=== PATIENT | male | born 1980 | race Caucasian/White ===

== ENCOUNTER 2018-01-03 13:58 | Emergency (ER) | payer OTHER ==
[~2018-01-03] VITALS: Ht 175.3 cm; Wt 108.9 kg
[~2018-01-03 13:58] MED LIST: IBUPROFEN 800800 MG PO; NOHOMEMEDICATIONS; NORCO 5-325 TA1 EACH PO; PENICILLIN VK500 M1 PO; ROBAXIN500 MG PO
[2018-01-03] MEDS ORDERED: BACTRIM DS TAB1 EACH PO (14:14)
[2018-01-03] MEDS ORDERED: KEFLEX500 M1 PO (14:14)
[2018-01-03 14:36] VITALS: BP 151/91
== END 2018-01-03 14:45 | disposition home or self-care (01) ==
LOC: M.ERS 13:58
DX: L73.9 Follicular disorder, unspecified (principal); I10 Essential (primary) hypertension; Z20.818 Contact with and (suspected) exposure to other bacterial communicable diseases; Z90.49 Acquired absence of other specified parts of digestive tract; Z88.5 Allergy status to narcotic agent; Z88.6 Allergy status to analgesic agent

== ENCOUNTER 2021-09-28 16:27 | Emergency (ER) | payer OTHER ==
[~2021-09-28] VITALS: Ht 175.3 cm; Wt 113.0 kg
[~2021-09-28 16:27] MED LIST changes: +BACTRIM DS TAB1 EACH PO; +KEFLEX500 M1 PO
[2021-09-28] MEDS ORDERED: LISINOPRIL20 MG PO (16:44)
[2021-09-28] MEDS ORDERED: HCTZ PO (16:45)
[2021-09-28 18:21] LABS: HEMATOCRIT 44.5 % (42.0-52.0); HEMOGLOBIN 15.3 gm/dL (14.0-18.0); MCH 29.5 pg (26.0-34.0); MCHC 34.3 g/dL (28.0-37.0); MCV 85.9 fL (80.0-100.0); MPV 9.6 fl. (7.2-11.1); RBC 5.18 mil/uL (4.50-6.00); RDW-CV 13.3 % (10.5-14.5); WBC 10.7 thou/uL (4.0-11.0)
[2021-09-28 18:24] LABS: CALCIUM 8.9 mg/dL (8.5-10.1); POTASSIUM 4.1 mmol/L (3.5-5.1)
[2021-09-28] MEDS ORDERED: FLEXERIL PO (18:56)
[2021-09-28] MEDS ORDERED: MEDROLDOSEPACK PO (18:56)
[2021-09-28] MEDS ORDERED: APAP W/CODEINE1 TA2 PO (18:56)
[2021-09-28 19:14] VITALS: BP 147/92
--- NOTE | 2021-09-29 09:44 | EKG ---
[place] [address] ELECTROCARDIOGRAM REPORT Name: CHUN SANTORO Room: [facility]#: [id number] Admission: 09/28/21 Attend Phys: Discharge: 09/28/21 Date of : 76 Date of Service: 09/28/21 1635 Report #: [id number] THIS REPORT FOR: //name// [facility] ED Test Date: 2021-09-28 Test Time: 16:35:29 Pat Name: CHUN SANTORO Department: Room: Gender: [place]: TDS : 1980 Requested By: Ana Bolivar Order Number: [id number] MD: Fabiano Pichardo Measurements Intervals [place] Rate: 87 P: 48 MN: 154 QRS: 27 QRSD: 95 T: 31 QT: 346 QTc: 417 Interpretive Statements Sinus rhythm RSR' in V1 or V2, probably normal variant Baseline wander in lead(s) I,II,aVR,aVF,V1,V4,V5,V6 No previous ECG available for comparison Electronically Signed On 09-29-2021 9:44:07 INVESTOR by Fabiano Pichardo [email or web address] <ELECTRONICALLY SIGNED> By: Fabiano Pichardo MD, FACC 09/29/21 0944 1635 1635 Fabiano Pichardo MD, FACC /EPI
== END 2021-09-28 19:15 | disposition home or self-care (01) ==
LOC: M.ERS 16:27
PROVIDERS: Physician Assistant
DX: R07.89 Other chest pain (principal); M54.6 Pain in thoracic spine; R10.13 Epigastric pain; R14.0 Abdominal distension (gaseous); R25.2 Cramp and spasm; I10 Essential (primary) hypertension; Z90.49 Acquired absence of other specified parts of digestive tract; Z98.890 Other specified postprocedural states; Z79.899 Other long term (current) drug therapy; Z88.6 Allergy status to analgesic agent; Z88.8 Allergy status to other drugs, medicaments and biological substances